=== PATIENT | male | born 1970 | race Two or more races ===

== ENCOUNTER 2023-09-29 15:48 | Emergency (ER) | payer OTHER ==
[~2023-09-29] VITALS: Ht 170.2 cm; Wt 88.6 kg
[2023-09-29] MEDS: SODIUM CHLORIDE 0.9% 2,000 ML IV ONE (16:15)
[2023-09-29 16:20] VITALS: RESP 18; O2SAT 95
[2023-09-29] MEDS: ACETAMINOPHEN 325 MG TAB PO ONE (16:34)
[2023-09-29 16:37] LABS: Basophils # (auto) 0.1 10 ^3/uL (0-0.2); Basophils % (auto) 0.6 % (0.0-2.0); Eosinophils # (auto) 0 10 ^3/uL (0-0.8); Eosinophils % (auto) 0.1 % (0.0-7.0); Hematocrit 42.3 % (41.0-53.0); Hemoglobin 14.3 g/dL (13.5-17.5); Lymphocytes # (auto) 1.1 10 ^3/uL (0.4-5.4); Lymphocytes % (auto) 11.4 % (10.0-50.0); Mean Corpuscular Hemoglobin 29.9 pg (28.0-32.0); Mean Corpuscular Hgb Conc. 33.7 g/dL (32.0-36.0); Mean Corpuscular Volume 88.6 fL (80.0-100.0); Monocytes # (auto) 0.8 10 ^3/uL (0-1.3); Monocytes % (auto) 7.8 % (0.0-12.0); Neutrophils # (auto) 7.8 10 ^3/uL (1.6-8.6); Neutrophils % (auto) 80.1 % (37.0-80.0); Red Blood Cells 4.78 10^6/uL (4.5-5.90); Red Cell Distribution Width 13.5 % (11.8-14.3); White Blood Cell 9.8 10^3/uL (4.4-10.8)
[2023-09-29 16:59] LABS: Alanine Aminotransferase 36 U/L (7-40); Albumin 4.7 g/dL (3.2-4.8); Alkaline Phosphatase 74 U/L (46-116); Anion Gap 10 (5-15); Aspartate Aminotransferase 22 U/L (13-40); BUN/Creatinine Ratio 12.6 (10.0-20.0); Blood Urea Nitrogen 26 mg/dL (9-23); Calcium 9.3 mg/dL (8.7-10.4); Carbon Dioxide 20 mmol/L (20-30); Chloride 97 mmol/L (98-107); Glucose 299 mg/dL (74-106); Potassium 4.8 mmol/L (3.5-5.1); Sodium 127 mmol/L (136-145)
[2023-09-29 17:00] LABS: Bilirubin, Total 0.7 mg/dL (0.2-1.0); Total Protein 7.3 g/dL (5.7-8.2)
[2023-09-29 17:28] LABS: COVID19 ANTIGEN SOFIA FIA NEGATIVE (NEGATIVE)
[2023-09-29 17:29] LABS: Rapid Influenza A Negative (Negative); Rapid Influenza B Negative (Negative)
[2023-09-29 17:41] LABS: Urine Bacteria None Seen /hpf (None Seen)
[2023-09-29 17:46] LABS: Urine Amorphous Crystal FEW /hpf (None Seen); Urine Blood 1+ /uL (Negative); Urine Clarity Turbid (Clear); Urine Color Yellow (Yellow); Urine Mucus FEW (None Seen); Urine Protein, UAD 3+ (Negative); Urine Specific Gravity 1.017 (1.001-1.035); Urine Urobilinogen Normal (Negative); Urine WBC 2 /hpf (0 - 3)
[2023-09-29 20:58] VITALS: BP 163/98; RESP 16; TEMP 100; O2SAT 96
[2023-09-29] MEDS ORDERED: AZIT1POW PO (21:05)
[2023-09-29 21:06] VITALS: PULSE 125
== END 2023-09-29 21:41 | disposition home or self-care (01) ==
LOC: ER 15:53
DX: J20.9 Acute bronchitis, unspecified (principal); R50.9 Fever, unspecified; I10 Essential (primary) hypertension; E11.9 Type 2 diabetes mellitus without complications; Z98.890 Other specified postprocedural states; Z20.822 Contact with and (suspected) exposure to COVID-19
CPT/HCPCS: 36415; 71045; 80053; 81001; 83605; 84484; 85025; 87040; 87426; 87804; 96360; 99284; J7030